=== PATIENT | male | born 1955 | race Caucasian/White ===

== ENCOUNTER 2021-05-22 15:08 | Observation (INO) | payer MEDICARE, MEDICAID, SELFPAY ==
[2021-05-22] VITALS (37 sets, daily range): BP systolic 108–171; BP diastolic 65–93; PULSE 82–124; RESP 16–35; TEMP 36.6; O2SAT 92–100
--- NOTE | ~2021-05-22 | CT_ITS ---
EXAMINATION: CT brain wo con DATE: 05/22/2021 16:55 INDICATION: Altered mental status. Fall. TECHNIQUE: Computed tomography (CT) of the head was performed without intravenous contrast. Sagittal and coronal reconstructions were performed. The mA was adjusted according to patient size. Iterative reconstruction technique was employed. The dose-length product was 681.00 mGy-cm. COMPARISON: None FINDINGS: No fracture. No acute intracranial hemorrhage or acute infarction. Small CSF attenuation space at the medial aspect of the right middle cranial fossa likely representing a small arachnoid cyst. There is mild scattered white matter hypoattenuation consistent with chronic small vessel ischemic disease. S ymmetric prominence of the sulci consistent with mild age-appropriate diffuse cerebral volume loss. V entricles are normal and symmetric. No masses identified. Changes of bilateral intraocular lens repla cement. The orbits and mastoid air cells are normal. Intracranial calcified cerebral atherosclerosis is noted. Mild mucosal thickening the bilateral ethmoid and maxillary sinuses. IMPRESSION: 1. No fracture or acute intracranial process. 2. Age-related changes including mild diffuse on loss and mild scattered white matter hypoattenuation consistent with chronic small vessel ischemic disease. Reviewed, dictated and finalized at location . 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
--- NOTE | ~2021-05-22 | CT_ITS ---
EXAMINATION: CT cervical spine wo con DATE: 05/22/2021 16:55 INDICATION: Altered mental status post fall. TECHNIQUE: Computed tomography (CT) of the cervical spine was performed without intravenous contrast. Automated exposure control and iterative reconstruction technique were employed. The dose-length pro duct was 513.42 mGy-cm. COMPARISON: None FINDINGS: Motion artifact at the level of the craniocervical junction but which is unable to be assessed withou t motion on the immediately prior CT of the head there by 9 significantly limiting evaluation. Minima l cervical levocurvature. Straightening of the normal cervical lordosis. 2 mm anterolisthesis C2 on C 3. 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 Vertebral body heights are normal. Sever e disc height loss at C3-C4, C5-C6 and T1-T2. Moderate disc height loss at C4-C5 and C6-C7. Mild disc height loss at C2-C3 and C7-T1. Mild pleural parenchymal scarring at the posterior left apex. Athero sclerotic calcification is at the bilateral carotid bulbs. Cervical soft tissues are otherwise unrema rkable. The following disc levels are specifically discussed: C2-C3: Disc is bulging. There is moderate right and mild left uncovertebral joint osteoarthritis. The re is severe right and mild left facet joint osteoarthritis. There is mild right neural foraminal pam nosis. There is mild central canal stenosis. C3-C4: Disc osteophyte complex. There is moderate left and severe right uncovertebral joint osteoarth ritis. There is mild left and moderate right facet joint osteoarthritis. There is mild to moderate le ft and moderate to severe right neural foraminal stenosis. There is mild central canal stenosis. C4-C5: Disc is bulging. There is moderate right and moderate to severe left uncovertebral joint osteo arthritis. There is severe right and mild left facet joint osteoarthritis. There is mild left and mod erate right neural foraminal stenosis. There is mild central canal stenosis. C5-C6: Posterior disc osteophyte complex. There is severe bilateral uncovertebral joint osteoarthriti s. There is mild right and moderate left facet joint osteoarthritis. There is mild to moderate bilate ral neural foraminal stenosis. There is mild to moderate central canal stenosis. C6-C7: Posterior disc osteophyte complex is present. There is severe bilateral uncovertebral joint os teoarthritis. There is mild bilateral facet joint osteoarthritis. There is moderate right and mild to moderate left neural foraminal stenosis. There is mild central canal stenosis. C7-T1: The disc does not extend beyond the endplate margin. There is mild left uncovertebral joint os teoarthritis. There is severe right and moderate to severe left facet joint osteoarthritis. There is mild right neural foraminal stenosis. There is no central canal stenosis. IMPRESSION: 1. Severe cervical spondylosis. No acute osseous abnormality. Reviewed, dictated and finalized at [facility]. INE SORTER
--- NOTE | ~2021-05-22 | XR_ITS ---
EXAMINATION: XR ribs RT 2V w CXR 2V DATE: 05/22/2021 17:07 INDICATION: Right rib pain post fall with alteration of awareness. TECHNIQUE: AP and lateral views of the chest and 3 views of the right ribs were obtained. COMPARISON: Chest radiograph dated 11/13/2018 FINDINGS: No significant change in old anterior right sixth-ninth and left anterior fifth-seventh rib fractures . No acute rib fractures identified. Calcified nodules in the right upper lung zone consistent with o ld granulomatous disease. No other airspace opacities, pulmonary edema, pleural effusion or pneumotho rax. Cardiomediastinal silhouette is normal. Atherosclerotic calcific a cyst at the aortic arch. Unch anged chronic mild anterior wedging at a couple mid thoracic vertebral bodies. There are bridging ost eophytes at multiple levels in the spine, consistent with diffuse idiopathic skeletal hyperostosis (D BENOIT). Mild osteoarthritis at the right glenohumeral joint with loose osteochondral body at the deep s ubscapular recess. IMPRESSION: 1. . Old healed bilateral rib fractures. No acute rib fractures identified. 2. No acute cardiopulmonary disease. Reviewed, dictated and finalized at location . 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
--- NOTE | 2021-05-22 16:37 | ED.FALL ---
HPI - Fall General Chief Complaint: Fall Stated Complaint: altered mental status Time Seen by Provider: 05/22/21 16:24 Source: patient Mode of arrival: ambulatory Limitations: no limitations History of Present Illness HPI Narrative: Patient complaining of right-sided head pain, right rib pain after a fall 3 days ago. Patient states that he was drinking when he fell. Patient denies any loss of consciousness. Patient denies neck pain, chest pain, abdominal pain, back pain or any extremity pain/injury. Patient admits to drinking today. Patient is a poor historian. Related Data Allergies Allergy/AdvReac Type Severity Reaction Status Date / Time benztropine Allergy Unknown Dry Mouth Verified 11/13/18 23:38 Review of Systems Review of Systems: All systems reviewed & are unremarkable except as noted in HPI and below Constitutional: Constitutional: Denies body ache(s), Denies chills, Denies excessive sweating, Denies fatigue, Denies fever(s), Denies lethargy, Denies malaise, Denies weakness and Denies weight loss Eyes: Eyes: Denies blurry vision, Denies change in vision and Denies loss of vision ENT: Denies dizziness, Denies ear discharge, Denies headache(s), Denies lip swelling, Denies epistaxis, Denies nasal congestion, Denies neck pain, Denies throat swelling and Denies tongue swelling Cardiovascular: Cardiovascular: Denies chest pain, Denies chest pain at rest, Denies chest pain with activity, Denies diaphoresis, Denies rapid heart rate, Denies edema, Denies irregular heart rhythm, Denies lightheadedness, Denies palpitations, Denies dyspnea and Denies dyspnea on exertion Respiratory: Respiratory: Denies chest congestion, Denies cough, Denies hemoptysis, Denies dyspnea and Denies dyspnea on exertion Gastrointestinal: Gastrointestinal: Denies abdominal pain, Denies melena, Denies hematochezia, Denies diarrhea, Denies nausea, Denies vomiting and Denies hematemesis Musculoskeletal: Musculoskeletal: Denies abnormal gait, Denies deformity, Denies joint swelling, Denies limited range of motion, Denies neck pain and Denies numbness Neurologic: Denies Abnormal speech present, Denies abnormal gait, Denies confusion, Denies dizziness, Denies headache(s), Denies focal weakness, Denies loss of vision, Denies numbness, Denies Other visual disturbances, Denies Sensory deficit (Neuro) and Denies weakness Psychiatric: Psychiatric: Denies confusion, Denies depression, Denies auditory hallucinations, Denies homicidal ideation and Denies suicidal ideation Endocrine: Endocrine: Denies cold intolerance, Denies excessive sweating, Denies fatigue, Denies heat intolerance and Denies palpitations Hematologic/Lymphatic: Hematologic/Lymphatic: Denies easy bleeding and Denies easy bruising Allergic/Immunologic: Allergic/Immunologic: Denies lip swelling, Denies throat swelling and Denies tongue swelling PMFSH Comments Past medical history: Unknown, states that he does not have any medical problems Family history: Unknown Social history: Smoker, occasional EtOH use, no drug use Exam Const: General: cooperative, comfortable, no acute distress, well developed, alert, awake and confusion Orientation/consciousness: oriented to person and No confusion Other: Not oriented to time place HENMT: Ears: hearing grossly normal bilaterally, TM normal on the right and TM normal on the left General nose exam: Normal external nose present, Normal nares present and No nasal discharge present Face and sinus: normal facial exam Mouth: Yes Normal oral and palatal mucosa present, Yes lip normal, Yes tongue normal and Yes oropharynx normal Throat: posterior oropharynx normal, tonsils normal and uvula midline Other: Abrasion right frontal head Eyes: General: appearance normal, both eyes and all related structures Pupils: Equal, round and reactive pupils present EOM: EOMs intact bilaterally Neck: Neck: normal visual inspection, full ROM, no lymphadenopathy and no meningeal signs
[2021-05-22] MEDS: ONDANSETRON INJ 4 MG/2 ML VIAL IV PUSH (17:37)
[2021-05-22] MEDS: LACTATED RINGERS 1,000 ML 999 ML IV CONT (17:37)
[2021-05-22 17:46] LABS: Basophils Percent Auto 0.3 % (0.2-1.2); Eosinophils Absolute Auto 0.1 K/mm3 (0-0.3); Hematocrit 41.6 % (42.0-52.0); Hemoglobin 14.3 g/dL (14.0-18.0); Immature Granulocyte Absolute 0.02 K/mm3 (0.00-0.031); Immature Granulocyte Percent A 0.3 % (0-0.5); Lymphocytes Absolute Auto 1.51 K/mm3 (0.9-3.2); Lymphocytes Percent Auto 22.9 % (18.3-44.2); Mean Corpuscular HGB Conc 34.4 g/dl (32-36); Mean Corpuscular Hemoglobin 32.3 pg (26-34); Mean Corpuscular Volume 93.9 fl (80-100); Monocytes Absolute Auto 1.2 K/mm3 (0.1-0.6); Monocytes Percent Auto 17.8 % (2.6-8.5); Neutrophils Absolute Auto 3.7 K/mm3 (1.3-6.7); Neutrophils Percent Auto 56.7 % (45.5-73.1); Platelet Count Result 153 k/mm3 (150-375); Red Blood Count 4.43 M/mm3 (4.6-6.20); Red Cell Distribution Width 14.6 % (11.5-14.5); White Blood Count 6.6 K/mm3 (4.5-10.0)
[2021-05-22 17:57] LABS: Alanine Aminotransferase 15 U/L (4-50); Alkaline Phosphatase 57 U/L (38-126); Anion Gap 3 mmol/L (8-16); Aspartate Amino Transferase 42 U/L (17-59); Bilirubin,Total 0.6 mg/dL (0.2-1.3); Blood Urea Nitrogen 29 mg/dL (9-20); Calcium 8.6 mg/dL (8.4-10.2); Carbon Dioxide 25 mmol/L (22-30); Chloride 104 mmol/L (98-107); Estimated CRCL calculation 59 ml/min; Estimated Glomerular Filt Rate > 60; Ethanol < 10 mg/dL (<10); Glucose 94 mg/dL (65-110); Potassium 3.7 mmol/L (3.4-5.0); Prothrombin Time 13.1 Seconds (11.1-14.7); Sodium 132 mmol/L (137-145)
[2021-05-22 17:58] LABS: Partial Thromboplastin Time 25.2 SECONDS (22.3-36.8)
[2021-05-22 18:11] LABS: Troponin I 0.074 ng/mL (0.000-0.034)
[2021-05-22 18:43] LABS: Add Urine Microscopic? YES; Appearance Urine Clear (Clear); Bilirubin Urine Negative (Negative); Blood Urine 1+ (Negative); Color Urine Amber (Yellow); Glucose Urine UA Negative (Negative); Ketones Urine 1+ mg/dL (Negative); Leukocyte Esterase Ur Negative LEU/UL (Negative); Mucus Urine Few /lpf; Nitrate Urine Negative (Negative); Protein Urine 1+ mg/dL (Negative); RBC Urine 21-50 /hpf (0-2); Specific Grav Ur 1.028 (1.001-1.035); Squamous Epithelial Cell Urine Rare /hpf (Few); WBC Urine 0-3 /hpf
[2021-05-22 19:02] LABS: Amphetamine Screen Urine Negative (Negative); Barbiturate Screen Urine Negative (Negative); Benzodiazepines Screen Urine Negative (Negative); Cannabinoid Screen Urine Positive (Negative); Cocaine Screen Urine Positive (Negative); Methadone Screen Urine Negative (Negative); Opiate Screen Urine Negative (Negative); Phencyclidine Screen Urine Negative (Negative)
--- NOTE | 2021-05-22 19:20 | PC.NURSE ---
Report received from MICHEL Garcia. Assumed care of patient at this time.
--- NOTE | 2021-05-22 19:42 | PC.NURSE ---
Patient yelling in room. Patient stating he needs to leave and they keep bugging me about my smart phone! I need to talk to the doctor! I need to leave now!. Patient alert to place at this time, unsure of his name or what day or year it is. Patient becoming agitated. Patient given snack and water upon request as well as a blanket. manager cosmetic aware of situation.
--- NOTE | 2021-05-22 19:51 | PC.NURSE ---
[facility] ERP DR PICKARD ATIVAN 1MG IV PUSH.
[2021-05-22] MEDS: LORazepam INJ (*CRX) 2 MG/ML VIAL 1 MG IV PUSH ×2 (19:55→21:46)
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
--- NOTE | 2021-05-22 20:57 | ECG_ITS ---
Measurements Intervals [place] Rate: 114 P: 85 [place]: 159 QRS: 113 QRSD: 128 T: 62 QT: 365 QTc: 503 Interpretive Statements SINUS TACHYCARDIA RIGHT BUNDLE BRANCH BLOCK LEFT POSTERIOR FASCICULAR BLOCK BASELINE ARTIFACT- II, III, AVL, AVF, V1, V3-V5 ABNORMAL ECG Electronically Signed On 05-22-2021 21:06:45 BOOM CONVEYOR OPERATOR by Marcelo Mercado D.O.
--- NOTE | 2021-05-22 20:57 | PM.IMHP ---
H&P: HPI History of Present Illness Date/Time: 05/22/21 20:57 Chief Complaint: Ribcage pain Narrative: This is a 66-year-old male who present to the emergency room complaining of right-sided rib cage pain, fall according to patient this was 3 days ago however patient changes history. Past medical history is unknown by patient is obviously intoxicated with alcohol and his not making sense noncoherent also using profanity and belligerent. History taking was significantly limited due to patient's intoxicated stage but also appears patient had been confabulating as well want instance he said that he needed an MRI when asked why he presented to the emergency room. Preliminary workup was significant for urine tox positive for cocaine and cannabis, chemistry panel showed a sodium of 132, elevated troponins, EKG with sinus tachycardia right bundle branch block. A chest x-ray did not show any acute rib fractures however old healed rib fractures were present. Review of Systems Review of Systems: Right-sided ribcage pain, fall. ROS unobtainable: Yes unobtainable due to mental status (Intoxicated) Meds Home Medications and Allergies Allergies Allergy/AdvReac Type Severity Reaction Status Date / Time benztropine Allergy Unknown Dry Mouth Verified 11/13/18 23:38 Vital Signs Vital Signs - 24 hr 05/22/21 15:27 05/22/21 16:07 05/22/21 16:16 Temperature 97.8 F Pulse Rate 100 98 104 H Respiratory Rate 18 21 H 21 H Blood Pressure 158/93 H 143/80 H Pulse Oximetry 97 98 96 05/22/21 17:55 05/22/21 18:00 05/22/21 18:01 Temperature Pulse Rate 102 H 91 94 Respiratory Rate 26 H 23 H 21 H Blood Pressure 144/92 H Pulse Oximetry 95 05/22/21 18:30 05/22/21 18:32 05/22/21 18:45 Temperature Pulse Rate 102 H 100 97 Respiratory Rate 27 H 35 H 29 H Blood Pressure 137/84 Pulse Oximetry 94 100 05/22/21 18:46 05/22/21 18:47 05/22/21 19:00 Temperature Pulse Rate 100 92 99 Respiratory Rate 27 H 21 H 22 H Blood Pressure 145/87 H Pulse Oximetry 99 98 100 05/22/21 19:01 05/22/21 19:15 05/22/21 19:16 Temperature Pulse Rate 82 99 96 Respiratory Rate 22 H 19 21 H Blood Pressure 149/93 H 161/84 H Pulse Oximetry 100 05/22/21 19:30 05/22/21 19:31 05/22/21 19:45 Temperature Pulse Rate 92 94 115 H Respiratory Rate 28 H 20 Blood Pressure 158/85 H Pulse Oximetry 96 96 05/22/21 20:00 05/22/21 20:02 Temperature Pulse Rate 117 H 117 H Respiratory Rate 16 17 Blood Pressure 171/84 H Pulse Oximetry Exam Narrative: Patient is disheveled unkempt has laceration wound to the forehead and multiple bruises at different stages of healing present in limbs phase Const: General: comfortable, no acute distress, well developed, alert, awake, Physically active, intoxicated appearing, poor hygiene and other (Disheveled) Nutritional Appearance: average body habitus Orientation/consciousness: oriented to person, oriented to place and Other orientation findings (Intoxicated) Limitations: altered mental status HENMT: Head: normal to inspection, normocephalic and abrasion right frontal Ears: hearing grossly normal bilaterally General nose exam: Normal external nose present Face and sinus: normal facial exam Mouth: Yes Normal oral and palatal mucosa present Eyes: General: appearance normal, both eyes and all related structures Alignment and Position: alignment normal Sclera: sclerae normal Pupils: Equal, round and reactive pupils present EOM: EOMs intact bilaterally Neck: Neck: normal visual inspection, full ROM, no lymphadenopathy, supple and no JVD Thyroid: thyroid normal Lymphatic: no lymphadenopathy noted Chest: Chest palpation & inspection: normal inspection of the chest, no crepitus and no localized rib tenderness Resp: Effort & Inspection: normal respiratory effort and able to speak in complete sentences Auscultation: clear to auscultation bilaterally, no crackles, no rales, no rhonchi and no w
[2021-05-22] MEDS: LACTATED RINGERS 1,000 ML 125 ML IV CONT (21:22)
[2021-05-22 21:59] LABS: Troponin I 0.072 ng/mL (0.000-0.034)
--- NOTE | 2021-05-22 23:18 | PC.NURSE ---
Patient sleeping on stretcher, NAD. Patient O2 sat decreased to 88% onRA. Patient readjusted and repositioned and sat increased to 89% on RA. Patient placed on 1L via NC.
[2021-05-23] VITALS (37 sets, daily range): BP systolic 140–168; BP diastolic 66–95; PULSE 88–114; RESP 12–38; TEMP 36.5–37.8; O2SAT 94–100; BMI 27.3
[2021-05-23 02:12] LABS: Troponin I 0.062 ng/mL (0.000-0.034)
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
--- NOTE | 2021-05-23 05:15 | PC.NURSE ---
VORB per give 5mg Haldol IM and 1mg Ativan IM for patient's agitation.
[2021-05-23] MEDS: LORazepam INJ (*CRX) 2 MG/ML VIAL 1 MG IM (05:39)
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
--- NOTE | 2021-05-23 07:32 | PC.NURSE ---
This nurse called for a breakfast room tray for the pt per the request
--- NOTE | 2021-05-23 08:56 | PC.NURSE ---
This nurse changed the linens of the patient and called for more coffee per pt request.
[2021-05-23] MEDS: LACTATED RINGERS 1,000 ML 125 ML IV CONT (10:15)
--- NOTE | 2021-05-23 11:00 | PC.NURSE ---
This nurse attempted to call Rand GIBSON for order due to patients increased respiratory rate of 36-40 a minute, and was told to call a different MD. Will attempt to call new MD for orders.
--- NOTE | 2021-05-23 13:05 | PC.NURSE ---
Report received from MICHEL Richard with the ED department at 1234. All questions answered and plan of care reviewed. Patient to go to IMU room 213.
--- NOTE | 2021-05-23 13:05 | ADMGEN ---
This patient, Casey Mccarthy, was admitted to IMU Room 213-01 at 1304. Patient/family oriented to hospital policies and general routines including ID bracelet, bed and alarms, visiting hours, pain management, procedures, bathroom and other care routines, personal items, smoking policy, room service/diet, and visiting hours. Information on how to activate the Rapid Response Team has been discussed. Patient/Family are encouraged to report perceived risks to care and to ask questions if they do not understand what they are told or what they should do.
--- NOTE | 2021-05-23 13:15 | PM.IMPN ---
Progress Note: A&P Assessment and Plan (1) Altered mental status: Qualifiers: Altered mental status type: unspecified Qualified Code(s): R41.82 - Altered mental status, unspecified Code(s): R41.82 - Altered mental status, unspecified Status: Acute Assessment and Plan: Likely secondary to intoxication Patient does seem to be confabulating at times using profanity as well and just nonsensical CT of the head with no acute abnormality Supportive care (2) Elevated troponin: Code(s): R77.8 - Other specified abnormalities of plasma proteins Status: Acute Assessment and Plan: EKG with no ST segment or T-wave changes Continue to trend troponins Will obtain echocardiogram Doubtful of plaque rupture Vasospasm is a possibility as patient is using cocaine (3) Intoxication with cocaine: Code(s): F14.929 - Cocaine use, unspecified with intoxication, unspecified Status: Acute Assessment and Plan: Continue to monitor Supportive care Continuous telemetry (4) Intoxication with cannabis: Code(s): F12.929 - Cannabis use, unspecified with intoxication, unspecified Status: Acute Assessment and Plan: Continue to monitor Supportive care Continuous telemetry (5) Fall: Code(s): W19.XXXA - Unspecified fall, initial encounter Status: Acute Assessment and Plan: Fall precautions Likely secondary to intoxication Subjective Date/time seen: 05/23/21 13:15 Patient was seen today during bedside rounds. Patient is pain-free right now. No shortness of breath. No abdominal pain, nausea, no vomiting,normal moods. Review of Systems Review of Systems: ROS unobtainable: Yes unobtainable due to mental status (Intoxicated) Exam Narrative: Patient is disheveled unkempt has laceration wound to the forehead and multiple bruises at different stages of healing present in limbs phase Const: General: comfortable, no acute distress, well developed, alert, awake, Physically active, intoxicated appearing, poor hygiene and other (Disheveled) Nutritional Appearance: average body habitus Orientation/consciousness: oriented to person, oriented to place and Other orientation findings (Intoxicated) Limitations: altered mental status HENMT: Head: normal to inspection, normocephalic and abrasion right frontal Ears: hearing grossly normal bilaterally General nose exam: Normal external nose present Face and sinus: normal facial exam Mouth: Yes Normal oral and palatal mucosa present Eyes: General: appearance normal, both eyes and all related structures Alignment and Position: alignment normal Sclera: sclerae normal Pupils: Equal, round and reactive pupils present EOM: EOMs intact bilaterally Neck: Neck: normal visual inspection, full ROM, no lymphadenopathy, supple and no JVD Thyroid: thyroid normal Lymphatic: no lymphadenopathy noted Chest: Chest palpation & inspection: normal inspection of the chest, no crepitus and no localized rib tenderness Resp: Effort & Inspection: normal respiratory effort and able to speak in complete sentences Auscultation: clear to auscultation bilaterally, no crackles, no rales, no rhonchi and no wheezes Cardio: Jugular venous distension: no JVD Rate: tachycardic Rhythm: regular rhythm Heart sounds: S1 normal heart sound present and S2 normal heart sound present GI: Inspection: normal to inspection : General: Yes deferred Skin: General skin exam: ecchymosis Rashes: no rashes Wounds: wounds noted (Abrasion, laceration distributed on limbs and face) Hair: male pattern alopecia Neuro: General: oriented to person, oriented to place, CN's II-XI intact bilaterally and Unable to assess gait Cranial nerves: Yes CN's II-XII intact bilaterally and Yes Equal, round and reactive pupils present Cognition (Neuro): abnormal cognition (Intoxicated) Speech: normal speech Gait exam (Neuro): Unable to assess gait Motor exam (neuro): 5
--- NOTE | 2021-05-23 13:47 | PM.CNCAR ---
Assessment and Plan Assessment and plan (1) Polysubstance abuse: Code(s): F19.10 - Other psychoactive substance abuse, uncomplicated Status: Acute Assessment and Plan: Advised to avoid cocaine and cannabis No beta-camille should be given given his history of cocaine use (2) Tobacco abuse: Code(s): Z72.0 - Tobacco use Status: Acute Assessment and Plan: Cessation counseling performed (3) Elevated troponin: Code(s): R77.8 - Other specified abnormalities of plasma proteins Status: Acute Assessment and Plan: Not related to acute coronary syndrome. Probably related to underlying alcohol/cocaine use. Echocardiogram is ordered and will be reviewed Low-dose aspirin 81 mg p.o. daily to be given (4) Abnormal EKG: Code(s): R94.31 - Abnormal electrocardiogram [ECG] [EKG] Status: Acute Assessment and Plan: He has evidence of a bifascicular block. History of Present Illness History of Present Illness Consult date/time: 05/23/21 13:47 Requesting physician: Angel Argueta MD Consult reason: Other (Elevated troponin) Reason For Visit: Altered Mental Status,Elevated Troponin Narrative: Reason consultation: Elevated troponin Date of service 05/23/2021 Requesting provider: Dr. Argueta History: Patient is a 66-year-old male who came to hospital because he thought he needed a CT scan. He reportedly fell a couple of days ago and had hurt his chest. Patient is difficult historian and is still somnolent and probably still intoxicated or under the inflow once. Patient currently denies any chest pain, shortness breath, syncope, presyncope, paroxysmal nocturnal dyspnea, orthopnea, edema palpitations. He however does have some abrasions and lacerations on his face. He states this is also from a fall. He denies that this is from passing out. Chest pain that he describes a couple of days ago he states was also secondary to fall. Review of Systems Review of Systems: All systems reviewed & are unremarkable except as noted in HPI and below Constitutional: Constitutional: Denies weakness Eyes: Eyes: Denies blurry vision ENT: Reports Normal hearing present Cardiovascular: Cardiovascular: Reports chest pain Respiratory: Respiratory: Denies dyspnea Gastrointestinal: Gastrointestinal: Denies abdominal pain Genitourinary: Genitourinary: Denies dysuria Musculoskeletal: Musculoskeletal: Denies neck pain Integumentary/Breasts: Skin/Breast: Denies unusual bruising Neurologic: Denies headache(s) Psychiatric: Psychiatric: Denies anxiety Endocrine: Endocrine: Denies fatigue Hematologic/Lymphatic: Hematologic/Lymphatic: Denies easy bleeding Allergic/Immunologic: Allergic/Immunologic: Denies GI upset with certain foods PMFSH Past Medical History Medical History Polysubstance abuse Tobacco abuse Family History Family History Other Heart disease Social History Social History Alcohol intake: current Substance use: current Substance use type: unknown Spiritual care concerns: No Meds Home Medications and Allergies Allergies Allergy/AdvReac Type Severity Reaction Status Date / Time benztropine Allergy Unknown Dry Mouth Verified 11/13/18 23:38 Vital Signs Vital Signs - 24 hr 05/22/21 15:27 05/22/21 16:07 05/22/21 16:16 Temperature 36.6 C Pulse Rate 100 98 104 H Respiratory Rate 18 21 H 21 H Blood Pressure 158/93 H 143/80 H Pulse Oximetry 97 98 96 05/22/21 17:55 05/22/21 18:00 05/22/21 18:01 Temperature Pulse Rate 102 H 91 94 Respiratory Rate 26 H 23 H 21 H Blood Pressure 144/92 H Pulse Oximetry 95 05/22/21 18:30 05/22/21 18:32 05/22/21 18:45 Temperature Pulse Rate 102 H 100 97 Respiratory Rate 27 H 35 H 29 H Blood Pressure 137/84
--- NOTE | 2021-05-23 20:32 | PC.NURSE ---
Patient a poor historian and unable to indicate his home medications, past medical history, or why he arrived at the ED today. Patient is oriented times 2. Attempted to contact patient's primary contact Todd (friend) who patient states he lives with but no answer via telephone. [facility] pharmacy called and patients medications updated per last filled.
[2021-05-23] MEDS: HEPARIN SODIUM 5,000 UNITS/ML VIAL 5000 UNITS SUB-Q (20:41)
[2021-05-24] VITALS: PULSE 98
--- NOTE | 2021-05-24 | ECHO_ITS ---
Patient Info Name: Casey Mccarthy Age: 66 years : 1955 Gender: Male Ht: 69 in Wt: 174 lbs BSA: 1.97 m2 HR: 89 bpm BP: 165 / 72 mmHg Heart Rhythm: Sinus Rhythm Exam Date: 05/24/2021 10:07 AM Exam Location: [facility] Patient Status: Inpatient Admit Date: 05/22/2021 Staff Ordering Physician: Adithya Pan MD [employer] Beauty Advisor: Rad Arroyo, MYCHAL, RT Attending Provider: Adithya Pan MD Referring Physician: Viviane WESTBROOK; Exam Type: CA echo doppler color flow Study Info Indications I50.9 - Heart failure, unspecified Complete two-dimensional, color flow and Doppler transthoracic echocardiogram is performed. Strain analysis performed. Summary 1. Complete two-dimensional, color flow and Doppler transthoracic echocardiogram is performed. 2. Left ventricular chamber dimension is normal. 3. Left ventricular systolic function is normal, estimated at 60-65%. 4. There is mildly increased left ventricular wall thickness. 5. The left ventricular diastolic function is grade I diastolic dysfunction. 6. Global longitudinal strain is abnormal at -14 %. 7. There is mild aortic valve sclerosis. Left Ventricle Left ventricular chamber dimension is normal. Left ventricular systolic function is normal, estimated at 60-65%. There is mildly increased left ventricular wall thickness. The left ventricular diastolic function is grade I diastolic dysfunction. Global longitudinal strain is abnormal at -14 %. Right Ventricle Right ventricular chamber dimension is normal. Right ventricular systolic function is normal. Left Atria Left atrial chamber dimension is normal. Right Atria Right atrial chamber dimension is normal. Atrial Septum Intact interatrial septum visualized by color flow imaging. Aortic Valve The aortic valve is trileaflet. There is mild aortic valve sclerosis. There is no aortic valve stenosis. There is trace aortic valve regurgitation. Pulmonic Valve The pulmonic valve is normal. There is no pulmonic valve stenosis. There is trace pulmonic regurgitation. Mitral Valve The mitral valve has normal leaflets. There is no mitral valve stenosis. There is trace mitral valve regurgitation. Tricuspid Valve The tricuspid valve leaflets are normal. There is no significant tricuspid valve stenosis. There is trace tricuspid valve regurgitation. Pericardium/Pleural The pericardium appears normal. There is trivial pericardial effusion. Inferior Vena Cava Normal inferior vena cava with >50% collapse upon inspiration consistent with normal right atrial pressure, 5 mmHg. Aorta The aortic root size at the sinus of Valsalva is normal. Left Ventricular Outflow Tract Name Value Normal LVOT 2D LVOT Diameter 2.0 cm LVOT Doppler LVOT Peak Gradient 4 mmHg LVOT Mean Gradient 2 mmHg LVOT VTI 15 cm LVOT VTI/AV VTI Ratio 0.7 LVOT Stroke Volume 49 ml LVOT CO 4.6 l/min LVOT
--- NOTE | 2021-05-24 00:43 | ADMGEN ---
This patient, Casey Mccarthy, was transfer to [address] [place] [address] in room 305-2. Patient/family oriented to hospital policies and general routines including ID bracelet, bed and alarms, visiting hours, pain management, procedures, bathroom and other care routines, personal items, smoking policy, room service/diet, and visiting hours. Information on how to activate the Rapid Response Team has been discussed. Patient/Family are encouraged to report perceived risks to care and to ask questions if they do not understand what they are told or what they should do.
--- NOTE | 2021-05-24 02:00 | PC.NURSE ---
This patient, Casey Mccarthy, was transferred to [ [facility]] on 05/23/21 at 2345. Personal belongings sent with patient. Report given to [Jens ]. Appropriate documentation sent with patient.
[2021-05-24 04:00] VITALS: PULSE 84
[2021-05-24 08:00] VITALS: BP 155/86; PULSE 96; RESP 20; TEMP 37.3; O2SAT 95
--- NOTE | 2021-05-24 11:29 | PM.PNCARD ---
Progress Note: A&P Assessment and Plan (1) Polysubstance abuse: Code(s): F19.10 - Other psychoactive substance abuse, uncomplicated Status: Acute Assessment and Plan: Advised to avoid cocaine and cannabis No beta-camille should be given given his history of cocaine use (2) Tobacco abuse: Code(s): Z72.0 - Tobacco use Status: Acute Assessment and Plan: Cessation counseling performed (3) Elevated troponin: Code(s): R77.8 - Other specified abnormalities of plasma proteins Status: Acute Assessment and Plan: Not related to acute coronary syndrome. Probably related to underlying alcohol/cocaine use. Continue aspirin 81 mg p.o. daily. Echocardiogram is pending (4) Abnormal EKG: Code(s): R94.31 - Abnormal electrocardiogram [ECG] [EKG] Status: Acute Assessment and Plan: He has evidence of a bifascicular block. (5) Hypertension: Code(s): I10 - Essential (primary) hypertension Status: Acute Assessment and Plan: lisinopril 20 mg p.o. daily to be started. First dose now. Subjective Date/time seen: 05/24/21 11:29 Interval history: 66-year-old admitted for intoxication, polysubstance abuse, chest pain Date of service 05/24/2021: More Coherent today. Has some right-sided rib pain but otherwise no shortness breath or chest pain and wants to go home Review of Systems Review of Systems: All systems reviewed & are unremarkable except as noted in HPI and below Constitutional: Constitutional: Denies fatigue, Denies headache(s) and Denies weakness Eyes: Eyes: Denies blurry vision ENT: Reports Normal hearing present, Denies headache(s) and Denies neck pain Cardiovascular: Cardiovascular: Reports chest pain and Denies dyspnea Respiratory: Respiratory: Denies dyspnea Gastrointestinal: Gastrointestinal: Denies abdominal pain Genitourinary: Genitourinary: Denies dysuria Musculoskeletal: Musculoskeletal: Denies neck pain Integumentary/Breasts: Skin/Breast: Denies unusual bruising Neurologic: Reports Normal hearing present, Denies headache(s) and Denies weakness Psychiatric: Psychiatric: Denies anxiety Endocrine: Endocrine: Denies fatigue Hematologic/Lymphatic: Hematologic/Lymphatic: Denies easy bleeding Allergic/Immunologic: Allergic/Immunologic: Denies GI upset with certain foods Exam Narrative: Alert oriented appears stated age Const: General: no acute distress Other: more awake today. HENMT: General nose exam: Normal nares present Other: Laceration noted on forehead as well as a black eye on the left Eyes: Sclera: sclerae normal Neck: Neck: supple and no JVD Chest: Other: No reproducible chest wall pain to palpation Resp: Auscultation: clear to auscultation bilaterally Cardio: Rate: regular rate Rhythm: regular rhythm GI: Auscultation: normal bowel sounds Skin: General skin exam: normal color Neuro: Cranial nerves: Yes Normal hearing present Cognition (Neuro): normal cognition Speech: normal speech Extrem: General: normal to inspection and no edema Psych: Mental Status: mental status grossly normal Objective Data Vital Signs Vital Signs: Vital Signs - 24 hr 05/23/21 13:34 05/23/21 14:00 05/23/21 16:00 Temperature 37.8 C H 37.5 C Pulse Rate 110 H 104 H 92 Respiratory Rate 26 H 12 Blood Pressure 164/81 H 158/80 H Pulse Oximetry 98 94 05/23/21 18:00 05/23/21 20:00 05/23/21 22:00 Temperature 36.5 C Pulse Rate 96 109 H 103 H Respiratory Rate 22 H Blood Pressure 168/88 H Pulse Oximetry 95 05/23/21 23:49 05/24/21 00:00 05/24/21 04:00 Temperature 36.6 C Pulse Rate 114 H 98 84 Respiratory Rate 20 Blood Pressure 165/72 H Pulse Oximetry 98 05/24/21 08:00 Temperature 37.3 C Pulse Rate 96 Respiratory Rate 20 Blood Pressure 155/86 H Pulse Oximetry 95 Intake/Output Intake/Output: Intake & Output 05/21/21 05/22/21 05/23/21 05/24/21 2
[2021-05-24 12:00] VITALS: BP 157/83; PULSE 91; RESP 18; TEMP 36.4; O2SAT 97
--- NOTE | 2021-05-24 12:23 | PM.DS ---
DS: Admitting Diagnosis Discharge Date 05/24/2021 Admitting Diagnosis Cocaine induced chest DS: Discharge Diagnosis Discharge Diagnosis (1) Altered mental status: Qualifiers: Altered mental status type: unspecified Qualified Code(s): R41.82 - Altered mental status, unspecified Code(s): R41.82 - Altered mental status, unspecified Status: Acute Assessment and Plan: Likely secondary to intoxication Patient does seem to be confabulating at times using profanity as well and just nonsensical CT of the head with no acute abnormality Supportive care (2) Elevated troponin: Code(s): R77.8 - Other specified abnormalities of plasma proteins Status: Acute Assessment and Plan: EKG with no ST segment or T-wave changes Continue to trend troponins Will obtain echocardiogram Doubtful of plaque rupture Vasospasm is a possibility as patient is using cocaine (3) Intoxication with cocaine: Code(s): F14.929 - Cocaine use, unspecified with intoxication, unspecified Status: Acute Assessment and Plan: Continue to monitor Supportive care Continuous telemetry (4) Intoxication with cannabis: Code(s): F12.929 - Cannabis use, unspecified with intoxication, unspecified Status: Acute Assessment and Plan: Continue to monitor Supportive care Continuous telemetry (5) Fall: Code(s): W19.XXXA - Unspecified fall, initial encounter Status: Acute Assessment and Plan: Fall precautions Likely secondary to intoxication DS: Summary Hospital Course Reason for hospitalization: Cocaine induced chest Hospital Course: 66 years old male was admitted complains of having chest pain patient was found to have cocaine in the system. Elevated troponin was secondary to cocaine use. Patient echo was normal. Today patient is feeling good so patient discharged home stable condition. Patient was referred to outpatient cocaine rehab. Patient has follow-up primary care physician and cardiology outpatient next week. Time spent discussing smoking cessation with patient: 3 to 10 minutes Status at Discharge Cognitive/behavioral status at discharge: Stable Functional status at discharge: independent ambulation Overall status at discharge: patient is back to baseline Time Spent with Patient Time attestation: Total time spent providing and/or coordinating discharge services: Time spent: Less than 30 minutes Exam Narrative: Patient is disheveled unkempt has laceration wound to the forehead and multiple bruises at different stages of healing present in limbs phase Const: General: comfortable, no acute distress, well developed, alert, awake, Physically active, intoxicated appearing, poor hygiene and other (Disheveled) Nutritional Appearance: average body habitus Orientation/consciousness: oriented to person, oriented to place and Other orientation findings (Intoxicated) Limitations: altered mental status HENMT: Head: normal to inspection, normocephalic and abrasion right frontal Ears: hearing grossly normal bilaterally General nose exam: Normal external nose present Face and sinus: normal facial exam Mouth: Yes Normal oral and palatal mucosa present Eyes: General: appearance normal, both eyes and all related structures Alignment and Position: alignment normal Sclera: sclerae normal Pupils: Equal, round and reactive pupils present EOM: EOMs intact bilaterally Neck: Neck: normal visual inspection, full ROM, no lymphadenopathy, supple and no JVD Thyroid: thyroid normal Lymphatic: no lymphadenopathy noted Chest: Chest palpation & inspection: normal inspection of the chest, no crepitus and no localized rib tenderness Resp: Effort & Inspection: normal respiratory effort and able to speak in complete sentences Auscultation: clear to auscultation bilaterally, no crackles, no rales, no rhonchi and no wheezes Cardio: Jugular venous distension: no JVD Rate: tachycardic Rhyth
== END 2021-05-24 15:30 | disposition home or self-care (01) ==
LOC: ANHED 19:59 → ANH3MEDSUR 05-24 12:14 → ANHIMU 05-26 13:49
PROVIDERS: Admitting Provider Internal Medicine; Emergency Provider Emergency Medicine; Visit Provider Internal Medicine
DX: R41.82 Altered mental status, unspecified (principal); R77.8 Other specified abnormalities of plasma proteins; R07.82 Intercostal pain; F12.929 Cannabis use, unspecified with intoxication, unspecified; F14.929 Cocaine use, unspecified with intoxication, unspecified; F17.210 Nicotine dependence, cigarettes, uncomplicated; M47.812 Spondylosis without myelopathy or radiculopathy, cervical region; R94.31 Abnormal electrocardiogram [ECG] [EKG]; W19.XXXA Unspecified fall, initial encounter
CPT/HCPCS: 36415; 51701; 70450; 71046; 71100; 72125; 80053; 80307; 81001; 84484; 85025; 85610; 85730; 93005; 93306; 99285; G0378; J1644; J2060; J2405; J7120